=== PATIENT | male | born 1955 | race Caucasian/White ===

== ENCOUNTER 2016-06-09 07:17 | Day surgery (SDC) | payer BC ==
--- NOTE | ~2016-06-09 | EGD ---
EGD REPORT [facility] [address] [address] NAME: DEONTE JARQUIN : [birth year] STATUS : [facility]#: [id number] AGE: 61 ADM/REG DATE : 06/09/16 MR#: [id number] REPORT SERV DATE: 06/15/16 DICTATED BY: ASHLEE SANTANA DATE: 06/15/16 REPORT STATUS : Draft TRANSCRIBED BY: [facility] DATE: 06/15/16 Endoscopy Center Patient Name: Deonte Jarquin Date of : 1955 Attending MD: RAMIRO SANTANA MD Procedure Date No Time: 06/09/2016 Procedure: Colonoscopy Indications: FH of Colon Cancer - 1st degree relative, Mother had colon cancer when she was 45 yrs. Patient last colonoscopy 12/29/09 Medicines: See the Anesthesia note for documentation of the administered medications Complications: No immediate complications. Estimated blood loss: None. Procedure: Pre-Anesthesia Assessment: - ASA Grade Assessment: III - A patient with severe systemic disease. After I obtained informed consent, the scope was passed under direct vision. Throughout the procedure, the patient's blood pressure, pulse, and oxygen saturations were monitored continuously. The PCF H190L [id number] was introduced through the anus and advanced to the cecum, identified by appendiceal orifice and ileocecal valve. The ileocecal valve, appendiceal orifice and rectum were photographed. The entire colon was examined. The colonoscopy was performed without difficulty. The patient tolerated the procedure well. The quality of the bowel preparation was adequate. Findings: The perianal and digital rectal examinations were normal. A sessile polyp was found in the cecum. The polyp was diminutive in size. The polyp was removed with a cold biopsy forceps. Resection and retrieval were complete. Multiple medium-mouthed diverticula were found in the sigmoid colon and in the descending colon. Non-bleeding internal hemorrhoids were found during retroflexion and were Grade I (internal hemorrhoids that do not prolapse). No other significant abnormalities were identified in a careful examination of the remainder of the colon. Impression: - One diminutive polyp in the cecum. Resected and retrieved. - Diverticulosis in the sigmoid colon and in the descending colon. - Non-bleeding internal hemorrhoids. EGD REPORT [address] [address] NAME: DEONTE JARQUIN : [birth year] STATUS : [facility]#: [id number] AGE: 61 ADM/REG DATE : 06/09/16 MR#: [id number] REPORT SERV DATE: 06/15/16 DICTATED BY: ASHLEE SANTANA DATE: 06/15/16 REPORT STATUS : Draft TRANSCRIBED BY: [employer] DATE: 06/15/16 Recommendation: - Patient has a contact number available for emergencies. The signs and symptoms of potential delayed complications were discussed with the patient. Return to normal activities tomorrow. Written discharge instructions were provided to the patient. - High fiber diet indefinitely. - Discharge patient to home. - Continue present medications. - Await pathology results. - Repeat colonoscopy in 5 years for surveillance. Procedure Code(s): --- Professional --- 23359, Colonoscopy, flexible, proximal to splenic flexure; with biopsy, single or multiple Diagnosis Code(s): --- Professional --- D12.0, Benign neoplasm of cecum K64.0, First degree hemorrhoids K57.30, Diverticulosis of large intestine without perforation or abscess without bleeding Z80.0, Family history of malignant neoplasm of digestive organs CPT copyright 2013 [employer]. All rights reserved. The codes documented in this report are preliminary and upon multiple drill operator review may be revised to meet current compliance requirements. RAMIRO SANTANA MD 06/09/2016 9:33 AM This report has been signed electronically. Number of Addenda: 0 Note Initiated On: 06/09/2016 9:03 AM Scope Withdrawal Time 0 hours 9 minutes 22 seconds [id number] [place] [id number]
--- NOTE | ~2016-06-09 | EGD ---
EGD REPORT [facility] [address] [address] NAME: DEONTE JARQUIN : [birth year] STATUS : [facility]#: [id number] AGE: 61 ADM/REG DATE : 06/09/16 MR#: [id number] REPORT SERV DATE: 06/09/16 DICTATED BY: ASHLEE SANTANA DATE: 06/09/16 REPORT STATUS : Draft TRANSCRIBED BY: [facility] DATE: 06/09/16 Endoscopy Center Patient Name: Deonte Jarquin Date of : 1955 Attending MD: RAMIRO SANTANA MD Procedure Date No Time: 06/09/2016 Procedure: Colonoscopy Indications: FH of Colon Cancer - 1st degree relative, Mother had colon cancer when she was 45 yrs. Patient last colonoscopy 12/29/09 Medicines: See the Anesthesia note for documentation of the administered medications Complications: No immediate complications. Estimated blood loss: None. Procedure: Pre-Anesthesia Assessment: - ASA Grade Assessment: III - A patient with severe systemic disease. After I obtained informed consent, the scope was passed under direct vision. Throughout the procedure, the patient's blood pressure, pulse, and oxygen saturations were monitored continuously. The PCF H190L [id number] was introduced through the anus and advanced to the cecum, identified by appendiceal orifice and ileocecal valve. The ileocecal valve, appendiceal orifice and rectum were photographed. The entire colon was examined. The colonoscopy was performed without difficulty. The patient tolerated the procedure well. The quality of the bowel preparation was adequate. Findings: The perianal and digital rectal examinations were normal. A sessile polyp was found in the cecum. The polyp was diminutive in size. The polyp was removed with a cold biopsy forceps. Resection and retrieval were complete. Multiple medium-mouthed diverticula were found in the sigmoid colon and in the descending colon. Non-bleeding internal hemorrhoids were found during retroflexion and were Grade I (internal hemorrhoids that do not prolapse). No other significant abnormalities were identified in a careful examination of the remainder of the colon. Impression: - One diminutive polyp in the cecum. Resected and retrieved. - Diverticulosis in the sigmoid colon and in the descending colon. - Non-bleeding internal hemorrhoids. EGD REPORT [address] [address] NAME: DEONTE JARQUIN : [birth year] STATUS : [facility]#: [id number] AGE: 61 ADM/REG DATE : 06/09/16 MR#: [id number] REPORT SERV DATE: 06/09/16 DICTATED BY: ASHLEE SANTANA DATE: 06/09/16 REPORT STATUS : Draft TRANSCRIBED BY: [employer] DATE: 06/09/16 Recommendation: - Patient has a contact number available for emergencies. The signs and symptoms of potential delayed complications were discussed with the patient. Return to normal activities tomorrow. Written discharge instructions were provided to the patient. - High fiber diet indefinitely. - Discharge patient to home. - Continue present medications. - Await pathology results. - Repeat colonoscopy in 5 years for surveillance. Procedure Code(s): --- Professional --- 74982, Colonoscopy, flexible, proximal to splenic flexure; with biopsy, single or multiple Diagnosis Code(s): --- Professional --- D12.0, Benign neoplasm of cecum K64.0, First degree hemorrhoids K57.30, Diverticulosis of large intestine without perforation or abscess without bleeding Z80.0, Family history of malignant neoplasm of digestive organs CPT copyright 2013 [employer]. All rights reserved. The codes documented in this report are preliminary and upon gm/svp global publisher business review may be revised to meet current compliance requirements. RAMIRO SANTANA MD 06/09/2016 9:33 AM This report has been signed electronically. Number of Addenda: 0 Note Initiated On: 06/09/2016 9:03 AM Scope Withdrawal Time 0 hours 9 minutes 22 seconds [id number] [place] [address]
[~2016-06-09 07:17] MED LIST: LISINOPRIL40 MG PO; PRILO PO; VITAMIN D31000 UNIT PO; ZOCOR20 PO
== END 2016-06-09 23:59 | disposition home or self-care (01) ==
LOC: DMU 07:17
PROVIDERS: Internal Medicine Gastroenterology
PROC: 0DBH8ZZ Excision of Cecum, Via Natural or Artificial Opening Endoscopic (ICD-10-PCS; principal; 2016-06-09 09:00)
DX: D12.0 Benign neoplasm of cecum (principal); K64.0 First degree hemorrhoids; K57.30 Diverticulosis of large intestine without perforation or abscess without bleeding; Z80.0 Family history of malignant neoplasm of digestive organs; I10 Essential (primary) hypertension; E78.00 Pure hypercholesterolemia, unspecified; K21.9 Gastro-esophageal reflux disease without esophagitis; E66.9 Obesity, unspecified; Z79.899 Other long term (current) drug therapy; M19.90 Unspecified osteoarthritis, unspecified site; Z98.890 Other specified postprocedural states
CPT/HCPCS: 88305